=== PATIENT | female | born 1955 | race Caucasian/White ===

== ENCOUNTER → 2016-06-29 | Outpatient (CLI) | payer BC ==
[~2016-06-29] MED LIST: AMARYL2 MG PO; AMBIEN PO; ASPIRIN EC81 M1 PO; ASPIRIN PO; ASPIRIN81 MG PO; CHANTIX1 DOSE-PAC PO; CIPRO PO; CRESTOR5 MG; CRESTOR5 MG PO; CYMBALTA PO; ECOTRIN500 MG; GLUCOPHAGE XR500 MG PO; JANUVIA PO; LEVAMIR SUBQ; LISINOPRIL10 MG PO; METFORMIN PO; MOTION SICKNESS25 M4 PO; MULTI-DAY VITAM1 TAB PO; NEURONTIN300 MG PO; NORCO 7.5-3251 EACH PO; NOVOLOG100 U/ML SUBQ; PERCOCET 10/3251 TAB PO; PHENERGAN12.5 MG PO; PRISTIQ50 MG PO; TRAVATAN5 ML OP; TYLENOL #3 PO; VITAMIN B; VITAMIN B-6500 MG; ZESTORETIC 20/21 TAB PO; ZESTRIL10 M1 PO; ZETIA PO; ZITHROMAX1 G/PKT PO; ZOLOFT PO
--- NOTE | ~2016-06-29 | CT138 ---
[facility] A Service of [facility] RADIOLOGY TEXT RESULTS PATIENT: BUFFY HARRIS LOCATION: [facility] : 59 UNIT #: [id number] AGE: [address]: Blue Valenzuela MD SEX: F ORDER DR: [id number] [facility]. [place], [place] [address] [id number] O MR#: [id number] Acc #: [id number] NAME: BUFFY HARRIS. : 1955 SEX: F STUDY DATE/TIME: 06/29/2016 10:54 UNIT: [facility] ROOM: STUDY DESCRIPTION: CT Lung screening initial Attending Physician: Blue Valenzuela M.D. Referring Physician: Blue Vaelnzuela M.D. Ordering Physician: Blue Valenzuela M.D. Primary Care Physician: Bola Ryder M.D. MEDICAL IMAGING REPORT This report is preliminary unless electronic signature is present EXAM CT thorax INDICATION 61-year-old female is a current smoker with a 35-year history of smoking. TECHNIQUE CT of the thorax without contrast. Coronal and sagittal reconstructions were obtained. Exam was performed as a low-dose chest CT utilizing lung cancer screening protocol. CTDI volume 2.6 mGy. DLP 91.31 mGy-cm. This CT exam was performed with one or more of the following radiation dose reduction techniques: automatic exposure control, adjustment of mA and/or kV according to patient size, and iterative reconstruction. COMPARISON CT chest dated 10/21/2009 FINDINGS This is a negative lung cancer screening. No suspicious pulmonary findings. There is mild emphysema in the lung apices. Central airways are patent. No focal consolidation. No pathologically enlarged mediastinal or hilar lymph nodes. The thoracic aorta is normal in caliber. No pericardial or pleural effusion. There are occasional coronary calcifications. IMPRESSION 1. Negative lung cancer screening. [facility] A Service of [facility] RADIOLOGY TEXT RESULTS PATIENT: BUFFY HARRIS LOCATION: [facility] : 59 UNIT #: [id number] AGE: [address]: Blue Valenzuela MD SEX: F ORDER DR: 2. Mild emphysema. ACR Lung-RADS classification 1: Negative examination. RECOMMENDATIONS Annual lung cancer screening with low-dose chest CT. Dictated by... Bret Omalley M.D. THIS IS AN ELECTRONICALLY VERIFIED REPORT Bret Omalley M.D. at 06/30/2016 11:16 AM STACEY/[place] TD: 06/30/2016 09:19 JOB #: [id number] MEDICAL IMAGING REPORT Page 1 of 1 COPY
== END | disposition home or self-care (01) ==
LOC: CCAT 09:56
DX: F17.210 Nicotine dependence, cigarettes, uncomplicated (principal); J43.9 Emphysema, unspecified
CPT/HCPCS: G0297